=== PATIENT | male | born 1930 | race Two or more races ===

== ENCOUNTER 2022-04-03 20:04 | Inpatient (IN) | payer OTHER ==
[~2022-04-03] VITALS: Ht 167.6 cm; Wt 77.1 kg
[2022-04-03] MEDS ORDERED: SYNTHROID (20:20)
[2022-04-03] MEDS ORDERED: LOSARTAN (20:20)
[2022-04-03] MEDS ORDERED: ASPIRINA 81 MG. (20:21)
[2022-04-05] MEDS ORDERED: ARTHRITIS PAIN650 MG (09:20)
[2022-04-05] MEDS ORDERED: ALEVE220 MG (09:20)
[2022-04-05] MEDS ORDERED: FOLIC ACID1 MG (09:21)
[2022-04-05] MEDS ORDERED: IRBESARTAN-HCT1 EAC1 (09:26)
[2022-04-05] MEDS ORDERED: LEVOTHYROXINE75 MCG (09:26)
[2022-04-05] MEDS ORDERED: MELOXICAM15 MG (09:26)
[2022-04-05] MEDS ORDERED: TERAZOSIN HCL2 M1 (09:27)
[2022-04-05] MEDS ORDERED: VITAMIN B-12100 MCG (09:27)
[2022-04-05] MEDS ORDERED: ST. JOSEPH ASPI81 M2 (09:27)
[2022-04-05] MEDS ORDERED: COZAAR25 MG (09:28)
== END 2022-04-08 20:33 | disposition home or self-care (01) | DRG 446 ==
LOC: ER 20:04 → MEDI 22:57
PROVIDERS: ADMIT Internal Medicine; ATTEND Internal Medicine
PROC: BW40ZZZ Ultrasonography of Abdomen (ICD-10-PCS; 2022-04-03)
PROC: BF37ZZZ Magnetic Resonance Imaging (MRI) of Pancreas (ICD-10-PCS; 2022-04-03)
PROC: B246ZZZ Ultrasonography of Right and Left Heart (ICD-10-PCS; principal; 2022-04-04)
DX: K80.00 Calculus of gallbladder with acute cholecystitis without obstruction (principal); D72.828 Other elevated white blood cell count; R14.0 Abdominal distension (gaseous); I35.0 Nonrheumatic aortic (valve) stenosis